=== PATIENT | female | born 1990 | race Caucasian/White ===

== ENCOUNTER 2017-03-05 19:19 | Emergency (ER) | payer OTHER ==
[~2017-03-05] VITALS: Ht 157.5 cm; Wt 54.4 kg
--- NOTE | ~2017-03-05 | CT71 ---
[facility] A Service of [facility] RADIOLOGY TEXT RESULTS PATIENT: NHI PERALES LOCATION: SED : 91 UNIT #: [id number] AGE: [address]: Reed Alvarez MD SEX: F ORDER DR: [id number] [address] [address] [id number] MR#: [id number] Acc #: [id number] NAME: NHI PERALES : 1990 SEX: F STUDY DATE/TIME: 03/05/2017 20:42 UNIT: SED ROOM: STUDY DESCRIPTION: CT Head Wo Contrast Attending Physician: Reed Alvarez M.D. Ordering Physician: Reed Alvarez M.D. Primary Care Physician: Primary Care Physician No MEDICAL IMAGING REPORT This report is preliminary unless electronic signature is present. EXAM CT head without contrast 03/05/2017 HISTORY 26-year-old female with dizziness and weakness beginning tonight. COMPARISON CT head 08/28/2013 TECHNIQUE Routine unenhanced axial images performed through the brain. This CT exam was performed with one or more of the following radiation dose reduction techniques: automatic control, adjustment of mA and/or kV according to patient size, and iterative reconstruction. FINDINGS No hemorrhage, acute infarction, mass lesion, or abnormal extraaxial fluid collection. No midline shift or focal mass effect. Ventricular system is normal in size and configuration. No acute bony abnormality. Visualized paranasal sinuses and mastoid air cells are clear. IMPRESSION Negative unenhanced head CT Dictated by... Eric James M.D. THIS IS AN ELECTRONICALLY VERIFIED REPORT Eric James M.D. at 03/06/2017 10:03 AM MADDIE/lauro TD: 03/06/2017 04:02 [facility] A Service of [facility] RADIOLOGY TEXT RESULTS PATIENT: NHI PERALES LOCATION: SED : 91 UNIT #: [id number] AGE: [address]: Reed Alvarez MD SEX: F ORDER DR: JOB #: [id number] MEDICAL IMAGING REPORT Page 1 of 1
[~2017-03-05 19:19] MED LIST: AMOXICILLIN PO; AMOXIL500 M2 PO; BENZONATATE PO; BIRTH CONTROL PILL PO; DICLOFENAC PO; FLEXERIL PO; FLEXERIL10 M1 PO; FLEXERIL10 MG PO; MOTRIN600 M2 PO; NO MEDICATIONS; ORTHO TRI-7 DAYSX 3 PO; PREDNISONE10 MG; PRENATAL1 TA1 PO; ROBITUSSIN-DM120 ML PO; ROBITUSSIN100 MG/52 PO; ULTRAM PO; VICODIN PO; ZITHROMAX PO
[2017-03-05 20:08] LABS: BASOPHIL# 0.1 X10e3 (0-0.3); BASOPHIL% 0.9 % (0-2.5); EOSINOPHIL# 0.1 X10e3 (0-0.7); EOSINOPHIL% 1.9 % (0.0-7.0); HEMATOCRIT 40.5 % (35.0-45.0); LYMPHOCYTE% 30.6 % (17.0-45.0); MEAN CELL VOLUME 88.3 FL (83-96); MEAN CORPUSCULAR HEMOGLOBIN 30.5 PG (28-34); MEAN CORPUSCULAR HGB CONC 34.6 g/dL (30-36); MEAN PLATELET VOLUME 8.3 FL (6.5-11.5); MONOCYTE# 0.6 X10e3 (0-1.0); MONOCYTE% 8.8 % (3.0-12.0); NEUTROPHIL# 3.7 X10e3 (1.5-7.1); NEUTROPHIL% 57.8 % (40-75); PLATELET COUNT 231 X10e3 (140-420); RED BLOOD COUNT 4.58 X10e (3.90-5.30); RED CELL DISTRIBUTION WIDTH 13.4 % (11.0-15.5); WHITE BLOOD COUNT 6.4 X10e3 (4.0-10.5)
[2017-03-05 20:10] LABS: DIFF IND NO
[2017-03-05 20:27] LABS: URINE SOURCE CLEAN CATCH
[2017-03-05 20:28] LABS: ALBUMIN SERUM 4.5 g/dL (3.5-5.0); BILIRUBIN,TOTAL 0.6 mg/dL (0.2-2.0); BUN/CREATININE RATIO 21.42; CALCIUM SERUM 9.3 mg/dL (8.4-10.2); CREATININE SERUM 0.7 mg/dL (0.6-1.4); GLOM FILT RATE Estimated 120.4 mL/min (>60); POTASSIUM 3.7 mmol/L (3.5-5.1); PROTEIN TOTAL SERUM 7.8 g/dL (6.0-8.3)
[2017-03-05 20:30] LABS: URINE APPEARANCE CLEAR; URINE BILIRUBIN NEG (NEG); URINE BLOOD NEG (NEG); URINE COLOR YELLOW; URINE GLUCOSE NEG (NORM); URINE KETONE NEG (NEG); URINE LEUKOCYTE ESTERASE NEG (NEG); URINE NITRATE NEG (NEG); URINE PH 6.5 (5-8); URINE PROTEIN NEG (NEG); URINE UROBILINOGEN 0.2 MG/DL (NORM)
[2017-03-05 20:32] LABS: MICRO INDICATED? NO
[2017-03-05 20:52] LABS: POC - CKMB <1.0 ng/mL (0.0-7.9); POC - TROPONIN <0.05 ng/mL (<=0.05)
== END 2017-03-05 21:43 | disposition home or self-care (01) ==
LOC: SED 19:19
DX: H81.10 Benign paroxysmal vertigo, unspecified ear (principal); Z91.040 Latex allergy status
CPT/HCPCS: 36415; 70450; 80053; 81003; 82553; 84443; 84484; 84703; 85025; 93005; 96360; 99284